=== PATIENT | male | born 1950 | race Caucasian/White ===

== ENCOUNTER 2019-03-04 07:51 | Inpatient (IN) ==
[2019-02-26 16:00] LABS: Appearance,Urine CLEAR; Bilirubin,Urine NEG (NEG); Color,Urine YELLOW; Culture Indicated,Urine NO; Glucose,Urine (UA) NEGATIVE (NEG); Ketones,Urine NEG (NEG); Leukocyte Esterase,Urine NEG /uL (NEG); Nitrate,Urine NEG (NEG); Protein,Urine NEG (NEG); Urine Blood NEG mg/dL (<0.03); Urobilinogen,Urine NEG (NEG)
[2019-02-26 16:53] LABS: Basophils # (Auto) 0 K/mcL (0.0-0.3); Basophils % (Auto) 0.2 % (0.0-2.0); Eosinophils # (Auto) 0.1 K/mcL (0.0-0.7); Eosinophils % (Auto) 1.8 % (0.0-7.0); Granulocytes % (Auto) 71.3 % (38.0-78.0); Hematocrit 40.6 % (41.0-55.0); Hemoglobin 13.6 g/dL (13.5-16.5); Lymphocytes # (Auto) 1.5 K/mcL (1.5-4.8); Lymphocytes % (Auto) 20.4 % (15.5-49.0); Mean Cell Volume 95.7 fL (80.0-100.0); Mean Corpuscular HGB Conc 33.4 g/dL (31.0-36.0); Mean Platelet Volume 8.1 fL (7.4-10.4); Monocytes # (Auto) 0.5 K/mcL (0.1-0.9); Monocytes % (Auto) 6.3 % (1.0-12.0); Platelet Count 248 K/mcL (140-440); RBC 4.24 M/mcL (4.50-5.90); Red Cell Distribution Width 13.1 % (11.5-14.5); WBC 7.5 K/mcL (4.5-11.0)
[2019-02-26 17:05] LABS: Blood Urea Nitrogen 12 mg/dl (8-23); Calcium 9.4 mg/dl (8.6-10.4); Carbon Dioxide 23 mmol/L (22-30); Chloride 102 mmol/L (96-108); Glomerular Filtration Rate 89; Glucose 93 mg/dL (70-105); Potassium 4.4 mmol/L (3.3-5.1); Sodium 138 mmol/L (133-145)
[~2019-03-04 07:51] MED LIST: 0.9 % SODIUM CHLORIDE 9 ML, KETOROLAC 30 MG, ROPIVACAINE HCL/PF 49.5 ML, EPINEPHrine 0.... IJ SCH; ACETAMINOPHEN 500 MG TABLET PO SCH; CELECOXIB 200 MG CAPSULE PO SCH; PREGABALIN 75 MG CAPSULE PO SCH; ceFAZolin 2 GM in DEXTROSE 5% IN WATER 50 ML IV SCH; oxyCODONE 10 MG TAB.ER.12H PO SCH
[2019-03-04] MEDS ORDERED: SCOPOLAMINE 1 PATCH PATCH TOPICAL PRN (08:00)
[2019-03-04] MEDS ORDERED: IPRATROPIUM/ALBUTEROL 3 ML AMPUL.NEB NEB PRN ×2 (08:00→12:03)
[2019-03-04] MEDS ORDERED: GENTAMICIN SULFATE 800 MG/20 ML VIAL IR ONE (09:45)
[2019-03-04] MEDS ORDERED: MIDAZOLAM 2 MG/2 ML VIAL IV ONE (10:30)
[2019-03-04] MEDS ORDERED: KETAMINE 100 MG/ML ML IV ONE (10:30)
[2019-03-04] MEDS ORDERED: ePHEDrine 50 MG/ML AMPUL IV ONE (10:30)
[2019-03-04] MEDS ORDERED: DEXAMETHASONE 10 MG/ML VIAL IV ONE (10:30)
[2019-03-04] MEDS ORDERED: ROPIVACAINE HCL/PF 20 ML VIAL IJ ONE (10:30)
[2019-03-04] MEDS ORDERED: TRANEXAMIC ACID 1,000 MG/10 ML VIAL IV ONE (10:30)
[2019-03-04] MEDS ORDERED: PROPOFOL 200 MG/20 ML VIAL IV ONE (10:30)
[2019-03-04] MEDS ORDERED: ONDANSETRON 4 MG/2 ML VIAL IV ONE (10:30)
[2019-03-04] MEDS ORDERED: LIDOCAINE HCL/PF 100 MG/5 ML SYRINGE IV ONE (10:30)
[2019-03-04] MEDS ORDERED: BENZOCAINE/MENTHOL 1 LOZENGE PO PRN ×2 (12:03→12:10)
[2019-03-04] MEDS ORDERED: LACTATED RINGERS 250 ML IV PRN (12:03)
[2019-03-04] MEDS ORDERED: diphenhydrAMINE 50 MG/ML VIAL IV PRN (12:03)
[2019-03-04] MEDS ORDERED: NALOXONE HCL 0.4 MG/ML VIAL IV PRN (12:03)
[2019-03-04] MEDS ORDERED: PROMETHAZINE 25 MG/ML VIAL IV PRN (12:03)
[2019-03-04] MEDS ORDERED: ONDANSETRON 4 MG/2 ML VIAL IV PRN ×2 (12:03→12:10)
[2019-03-04] MEDS ORDERED: FLUMAZENIL 0.1 MG/ML ML IV PRN (12:03)
[2019-03-04] MEDS ORDERED: MEPERIDINE 25 MG/ML SYRINGE IV PRN (12:03)
[2019-03-04] MEDS ORDERED: fentaNYL 100 MCG/2 ML VIAL IV PRN (12:03)
[2019-03-04] MEDS ORDERED: HYDROmorphone 2 MG/ML VIAL IV PRN (12:10)
[2019-03-04] MEDS ORDERED: MAGNESIUM HYDROXIDE 30 ML ORAL.SUSP PO PRN (12:10)
[2019-03-04] MEDS ORDERED: TRANEXAMIC ACID 1,000 MG/10 ML VIAL IV SCH (12:10)
[2019-03-04] MEDS ORDERED: POLYETHYLENE GLYCOL 3350 17 GM PACKET PO PRN (12:10)
[2019-03-04] MEDS ORDERED: FLEETS ADULT ENEMA PR PRN (12:10)
[2019-03-04] MEDS ORDERED: BISACODYL 10 MG SUPP.RECT PR PRN (12:10)
[2019-03-04] MEDS ORDERED: ACETAMINOPHEN 325 MG TABLET PO PRN (12:10)
--- NOTE | 2019-03-04 12:14 | Brief Operative Note ---
Date of procedure: 03/04/19 Pre-op diagnosis: Left knee djd Post-op diagnosis: same Procedure: left robotic tka Grafts/Implants: Yes Anesthesia: MASON Surgeon: Bimal Parmar Blind Installer: Zachary Schumacher Estimated blood loss (cc): 20 Tourniquet Time (Minutes): 50 Specimens Removed/Pathology: none sent Condition: stable Disposition: PACU
[2019-03-04] MEDS ORDERED: LACTATED RINGERS 1,000 ML IV SCH (12:15)
--- NOTE | 2019-03-04 12:56 | XRay Report ---
CLINICAL INFORMATION: Postsurgical follow-up TECHNIQUE: AP and lateral left knee COMPARISON: None. FINDINGS: Status post left total knee arthroplasty. Femoral and tibial components are in anatomic positions. There is postsurgical soft tissue and intra-articular gas IMPRESSION: Status post left total knee arthroplasty Interpreted and Authenticated by: Celestino Aguila 03/04/19
[2019-03-04] MEDS: 0.45 % SODIUM CHLORIDE 1,000 ML IV SCH ×2 (13:00→23:49)
[2019-03-04] MEDS: ceFAZolin 1 GM VIAL IV SCH (17:54)
[2019-03-04] MEDS: KETOROLAC 15 MG/ML VIAL IV SCH ×2 (17:59→23:54)
[2019-03-04] MEDS: oxyCODONE/APAP 5/325MG TABLET PO PRN ×3 (18:00→23:45)
[2019-03-04] MEDS: 0.9 % SODIUM CHLORIDE 10 ML SYRINGE IV SCH ×2 (19:04→21:57)
[2019-03-04] MEDS ORDERED: TEMAZEPAM 15 MG CAPSULE PO PRN (21:00)
[2019-03-04] MEDS ORDERED: SENNOSIDES 1 TABLET PO SCH (21:00)
[2019-03-04] MEDS: DOCUSATE SODIUM 100 MG CAPSULE PO SCH (21:57)
[2019-03-04] MEDS: ASPIRIN 325 MG ENTERIC COATED TABLET PO SCH (21:57)
[2019-03-05] MEDS: oxyCODONE/APAP 5/325MG TABLET PO PRN ×4 (02:21→14:50)
[2019-03-05] MEDS: ceFAZolin 1 GM VIAL IV SCH (02:21)
[2019-03-05] MEDS: 0.9 % SODIUM CHLORIDE 10 ML SYRINGE IV SCH ×2 (05:32→15:22)
[2019-03-05] MEDS: KETOROLAC 15 MG/ML VIAL IV SCH ×2 (05:35→13:05)
--- NOTE | 2019-03-05 07:39 | Orthopedic Progress Note ---
Subjective Patient information: Note initiated : 03/05/19 at 7:38 am Service Date, if different from initiated Date: [] Patient: Modesto Chacko 68 y/o M admitted on 03/04/19 for Left Total Knee Arthroplasty Herson . Chief Complaint: [Pt is stable this morning on post operative day 1 without any significant concerns or complaints. Patients vital signs have remained stable. Patients dressing is dry and is grossly intact from a neurovascular and motor standpoint. Patients 10 point ROS is otherwise negative. ] Objective Vital signs: Vital Signs Temp Pulse Resp BP Pulse Ox 03/05/19 07:20 97.8 F 54 L 16 126/76 99 03/05/19 05:37 96 03/05/19 04:19 98.3 F 63 16 118/76 98 03/05/19 02:00 97 03/04/19 23:00 98.1 F 73 16 131/83 97 03/04/19 21:00 97 03/04/19 19:34 18 03/04/19 19:33 97.5 F 79 16 143/92 97 03/04/19 17:00 100 03/04/19 15:40 97.4 F 54 L 18 132/88 98 03/04/19 14:40 56 L 16 163/93 97 03/04/19 14:10 51 L 16 173/87 98 03/04/19 13:55 46 L 16 169/88 98 03/04/19 13:40 45 L 16 169/91 100 03/04/19 13:25 50 L 16 134/68 100 03/04/19 13:05 100 03/04/19 12:53 97.4 F 61 14 162/96 100 03/04/19 12:38 97.4 F 67 16 157/81 98 03/04/19 12:33 74 16 144/74 100 03/04/19 12:28 68 16 152/84 100 03/04/19 12:23 97.5 F 76 8 L 148/83 100 03/04/19 08:00 98.5 F 54 L 18 144/93 97 Intake and Output 03/04/19 03/05/19 03/05/19 21:59 05:59 13:59 Intake Total 100 980 Output Total 500 700 Balance -400 280 Intake: Oral 100 980 Output: Urine Catheter Amount 500 700 Other: Meal Dinner [place] Percent of Meal Consumed 100% 100% Feeding Ability Independent Urine Appearance Clear Uretheral (Brooks) Clear Urine Color Bright Yellow Uretheral (Brooks) Dark Yellow Urine Odor Strong Weight 209 lb Intake & Output: Intake & Output 03/04/19 03/05/19 03/05/19 21:59 05:59 13:59 Intake Total 100 980 Output Total 500 700 Balance -400 280 Weight 209 lb Intake: Oral 100 980 Output: Urine Catheter Amount 500 700 Other: Meal Dinner [place] Percent of Meal Consumed 100% 100% Feeding Ability Independent Urine Appearance Clear Uretheral (Brooks) Clear Urine Color Bright Yellow Uretheral (Brooks) Dark Yellow Urine Odor Strong Incision: Yes healing Incision clean and dry: Yes Dressing: Yes clean Weight bearing status: full Neurological exam IM: Yes motor sensory intact Extremities exam IM: Yes Foot pink and warm, Yes neurovascular intact - Labs CBC & BMP: 03/05/19 04:40 02/26/19 13:28 Labs: 03/05/19 02/26/19 04:40 13:28 Hgb 13.6 Hct 35.3 L 40.6 L Assessment and Plan (1) Hx of total knee arthroplasty The patient has been educated regarding dressing care, Physical Therapy recommendations, home exercises, restrictions, and follow up appointments. The patient has had all necessary DME prescribed. The patient has remained relatively stable during their hospital course. Leave Dermabond patch intact until followup Status: Acute Priority: Medium
--- NOTE | 2019-03-05 07:41 | Discharge Summary ---
Ortho Discharge - TKA - Patient Instructions Diet: Regular Diet Activity: activity as tolerated, weight bearing as tolerated Total Knee Protocol: For Total Knee: Start ROM SRAVANTHI with stationary bike or rocking chair. Work on gaining full extension of knee. Posterior dislocation precautions provided. Hip abductor strengthening and gait training instructions provided. Apply Cryocuff as instructed. Dressing Care: May shower in 2 days - Problem Maintenance (1) Hx of total knee arthroplasty Status: Acute - Follow Up Plan Follow Up Appointments: Zachary Schumacher PA-C [[employer]] - 03/19/19 10:40 am Disposition: Home, Self-Care Prognosis: Good Rehab Potential: Good I certify that the patient requires SNF services: No Overall status at discharge: patient is progressing back to baseline - Orders For Discharge Prescriptions: Aspirin [Ecotrin] 325 mg PO BID #60 tab.ec Docusate Sodium [Colace] 100 mg PO BID #60 cap oxyCODONE/APAP [Percocet 5-325 mg] 1 - 2 tab PO Q4HP PRN #75 tab PRN Reason: Pain Level 3-6
--- NOTE | 2019-03-05 07:58 | Operative Note ---
DATE OF OPERATION: 03/04/2019 PREOPERATIVE DIAGNOSIS: Left knee degenerative arthritis, severe. POSTOPERATIVE DIAGNOSIS: Left knee degenerative arthritis, severe. PROCEDURE: Left total knee arthroplasty using Herson robot. SURGEON: Bimal Parmar MD TREE CHIPPER: Zachary Schumacher PA-C. The PA's assistance was required for the safe and efficient completion of the entire case. This provider's expertise and technical skill were required throughout the case. The PA assisted with preoperative coordination, intraoperative retraction, wound closure, dressing and splint application, as well as postoperative documentation and care coordination. ANESTHESIA: Spinal with general LMA anesthesia during case. ESTIMATED BLOOD LOSS: About 50 mL COMPLICATIONS: None. TOURNIQUET: 250 pounds of pressure. IV ANTIBIOTICS: Pre-op antibiotics were given. Tranexamic acid given. DESCRIPTION OF PROCEDURE: The patient was brought to the operating room and put to sleep with general LMA anesthesia. Once asleep, the patient had the left leg sterilely prepped and draped in the usual sterile fashion. Once done, we then had a timeout and confirmed as the operative site by initials, consent form and x-rays. Once done, we then placed the guide pins. The robot was brought in after registering the center of hip rotation, medial and lateral malleoli and we then balanced the knee at 90 and 15 degrees. We then brought in the robot, made the bony cuts. We place the components appropriately and then irrigated thoroughly. The patella was resurfaced as well. We closed the capsule after reinspecting the knee with #1 Stratafix x2, Stratafix for the skin and adhesive closure on the skin. The patient tolerated this well. Tourniquet time was 50 minutes. RBH:[email or web address] Job ID: [id number] Doc ID: [id number] Bimal Parmar MD
[2019-03-05] MEDS ORDERED: LOSARTAN 50 MG TABLET PO SCH (09:00)
[2019-03-05] MEDS: ASPIRIN 325 MG ENTERIC COATED TABLET PO SCH (09:22)
[2019-03-05] MEDS: DOCUSATE SODIUM 100 MG CAPSULE PO SCH (09:22)
[2019-03-05] MEDS ORDERED: PNEUMOCOCCAL 23-VAL P-SAC VAC 0.5 ML SYRINGE IM ONE (10:00)
== END 2019-03-05 15:10 | disposition home or self-care (01) | DRG 470 ==
LOC: MEDSUR 07:51
PROVIDERS: ADMIT Orthopaedic Surgery; ATTEND Orthopaedic Surgery